=== PATIENT | male | born 1990 | race American Indian/Alaskan Native ===

== ENCOUNTER 2019-05-02 14:34 | Emergency (ER) | payer SELFPAY ==
--- NOTE | 2019-05-02 16:20 | Event Note ---
ED Screening Note Date of service: 05/02/19 Time: 16:07 ED Screening Note: 28 yo male states he slipped and fell down 6-7 steps around 12am. He denies head trauma c/o right buttocks and and right hip pain. No spinal tenderness. This initial assessment/diagnostic orders/clinical plan/treatment(s) is/are subject to change based on patients health status, clinical progression and re- assessment by fellow clinical providers in the ED. Further treatment and workup at subsequent clinical providers discretion. Patient/guardian urged not to elope from the ED as their condition may be serious if not clinically assessed and managed. Initial orders include:
--- NOTE | 2019-05-02 17:46 | Emergency Department Report ---
ED Lower Extremity HPI - General Chief Complaint: Fall Stated Complaint: FALL/LT LEG INJURY Time Seen by Provider: 05/02/19 16:06 Source: patient Mode of arrival: Ambulatory Limitations: No Limitations - History of Present Illness Initial Comments: This is a 28-year-old -[place] male who presents to the emergency room with left lower extremity pain. Patient states he slipped and feel down 6-7 steps at home. Patient states his roommates feels some ice and didn't pick it up on the steps. He reports left hip pain that is radiating down left leg. He reports pain is 10 out of 10 on pain scale, burning aching in intensity. He reports pain is worse with movement and weightbearing. Patient reports taking one Tylenol today with no improvement of symptoms. He denies loss of consciousness, hitting his head, swelling, bruising, change in urinary or bowel pattern. MD Complaint: hip injury -: Last night Injury: Hip: Left, Leg: Left Type of Injury: blunt Place: home Severity: severe Severity scale (0 -10): 10 Improves With: immobilization Worsens With: weight bearing, movement, palpation Context: fall Associated Symptoms: numbness, tingling, able to partially bear weight, ambulatory. denies: snap/pop sensation, swelling, unable to bear weight Treatments Prior to Arrival: NSAIDS - Related Data Previous Rx's Medication Instructions Recorded Last Taken Type Methocarbamol [Robaxin] 500 mg PO BID PRN #15 tablet 05/02/19 Unknown Rx Naproxen [Naprosyn TAB] 500 mg PO BID PRN #20 tablet 05/02/19 Unknown Rx amLODIPine 5 mg PO DAILY #30 tab 05/02/19 Unknown Rx hydroCHLOROthiazide [HCTZ] 12.5 mg PO QDAY #30 capsule 05/02/19 Unknown Rx Allergies Allergy/AdvReac Type Severity Reaction Status Date / Time No Known Allergies Allergy Unverified 05/02/19 14:38 ED Review of Systems ROS: Stated complaint: FALL/LT LEG INJURY Other details as noted in HPI Constitutional: denies: chills, fever Respiratory: denies: cough, shortness of breath, wheezing Cardiovascular: denies: chest pain, palpitations Gastrointestinal: denies: abdominal pain, nausea, diarrhea Musculoskeletal: arthralgia (left lower extremity numbness and tingling). denies: back pain, joint swelling Skin: denies: rash, lesions Neurological: denies: headache, weakness, paresthesias Psychiatric: denies: anxiety, depression ED Past Medical Hx - Past Medical History Previous Medical History?: No - Surgical History Past Surgical History?: No - Social History Smoking Status: Current Some Day Smoker Substance Use Type: None - Medications Home Medications: Home Medications Medication Instructions Recorded Confirmed Last Taken Type Methocarbamol [Robaxin] 500 mg PO BID PRN #15 tablet 05/02/19 Unknown Rx Naproxen [Naprosyn TAB] 500 mg PO BID PRN #20 tablet 05/02/19 Unknown Rx amLODIPine 5 mg PO DAILY #30 tab 05/02/19 Unknown Rx hydroCHLOROthiazide [HCTZ] 12.5 mg PO QDAY #30 capsule 05/02/19 Unknown Rx ED Physical Exam - General Limitations: No Limitations General appearance: alert, in no apparent distress, obese - Neck Neck exam: Present: normal inspection - Respiratory Respiratory exam: Present: normal lung sounds bilaterally. Absent: respiratory distress - Cardiovascular Cardiovascular Exam: Present: regular rate, normal rhythm. Absent: systolic murmur, diastolic murmur, rubs, gallop - GI/Abdominal GI/Abdominal exam: Present: soft, normal bowel sounds. Absent: distended, tenderness, guarding, rebound, rigid - Back Exam Back exam: Present: full ROM, paraspinal tenderness (TTP of left lumbar paraspinal, no midline C-spine and L-spine tenderness, positive straight leg test on the left no erythema or swelling). Absent: muscle spasm, rash noted - Neurological Exam Neurological exam: Present: alert, oriented X3, normal gait - Psychiatric Psychiatric exam: Present: normal affect, normal mood - Skin Skin exam: Present: warm, dry, intact, normal color. Absent: rash ED Course Vital Signs 05/02/19 05/02/19 05/02/19 16:07 17:57 18:58 Temperature 98.3 F Pulse Rate 93 H 93 H 92 H Respiratory 20 16 Rate Blood Pressure 216/119 203/135 Blood Pressure 186/107 [Right] O2 Sat by Pulse 96 99 Oximetry ED Lower Extremity MDM - Medical Decision Making Patient was examined by me. TTP of left lumbar paraspinal, no midline C-spine and L-spine tenderness, positive straight leg test on the left no erythema or swelling. Given analgesics for pain. Patient's blood pressure elevated without prior history of hypertension. Given clonidine 0.2 mg by mouth while in the ER. Blood pressure trended down. Start Robaxin and naproxen for sciatica of left leg. Start hydrochlorothiazide and amlodipine for hypertension. Referral to primary care doctor for follow-up. Plan discussed with patient to discharge home and treat outpatient. He agrees with ER plan. Patient discharged home in stable condition. Follow up with PCP and in 2-3 days. Critical care attestation.: If time is entered above; I have spent that time in minutes in the direct care of this critically ill patient, excluding procedure time. ED Disposition Clinical Impression: Asymptomatic hypertension, Pain in left hip, Left leg pain, Sciatica of left side Disposition: - TO HOME OR SELFCARE Is pt being admited?: No Condition: Stable Instructions: Hypertension (ED), Lumbar Radiculopathy (ED), Sciatica (ED) Additional Instructions: Encourage stop smoking to reduce cardiovascular risk. Moderate caffeine consumption is acceptable. Begin and maintain aerobic exercise, with a goal of at least 30 minutes of moderate intensity, dynamic aerobic exercise (walking, jogging, cycling, or s wimming) 5 days per week to total 150 minutes as tolerated or recommended by a physician. Take medication daily as prescribed. Follow up with Primary Care Provider in 1 week. Prescriptions: amLODIPine 5 mg PO DAILY #30 tab hydroCHLOROthiazide [HCTZ] 12.5 mg PO QDAY #30 capsule Naproxen [Naprosyn TAB] 500 mg PO BID PRN #20 tablet PRN Reason: Pain , Severe (7-10) Methocarbamol [Robaxin] 500 mg PO BID PRN #15 tablet PRN Reason: Muscle Spasm Referrals: [facility] [Outside] - 3-5 Days [facility] [Outside] - 3-5 Days TERRELL TARANGO MD [Staff Physician] - 3-5 Days CARLY COHEN MD [Staff Physician] - 3-5 Days Forms: Work/School Release Form(ED), Accompanied Note Time of Disposition: 19:07
[2019-05-02] MEDS ORDERED: cloNIDine 0.2 MG TAB PO ONE (17:49)
[2019-05-02] MEDS ORDERED: KETOROLAC 30 MG/1 ML INJ IM ONE (17:49)
[2019-05-02 19:15] VITALS: BP 157/98
== END 2019-05-02 19:14 | disposition home or self-care (01) ==
LOC: ED 14:34
DX: M25.552 Pain in left hip (principal); M54.32 Sciatica, left side; I10 Essential (primary) hypertension; F17.200 Nicotine dependence, unspecified, uncomplicated; Z79.899 Other long term (current) drug therapy
CPT/HCPCS: 96372; 99282; J1885

== ENCOUNTER 2019-09-29 13:40 | Emergency (ER) | payer OTHER ==
[2019-09-29 13:45] VITALS: BP 185/125
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
== END 2019-09-29 17:40 | disposition home or self-care (01) ==
LOC: ED 13:40
DX: M62.838 Other muscle spasm (principal); F17.200 Nicotine dependence, unspecified, uncomplicated; Z79.899 Other long term (current) drug therapy; V89.2XXA Person injured in unspecified motor-vehicle accident, traffic, initial encounter; Y93.89 Activity, other specified; Y92.89 Other specified places as the place of occurrence of the external cause; Y99.8 Other external cause status
CPT/HCPCS: 99281